=== PATIENT | female | born 1955 | race African-American/Black ===

== ENCOUNTER 2017-03-05 20:42 | Emergency (ER) | payer MEDICARE, OTHER ==
[~2017-03-05 20:42] MED LIST: COLACE PO; K-DUR20 ME1 PO; MACROBID100 MG PO; MEDROL DOSEPAK4 MG PO; TRAMADOL HCL50 M1 PO
== END 2017-03-05 22:35 | disposition home or self-care (01) ==
LOC: CED 20:42
DX: M54.5 Low back pain (principal); E66.01 Morbid (severe) obesity due to excess calories; I10 Essential (primary) hypertension; Z90.49 Acquired absence of other specified parts of digestive tract; Z90.710 Acquired absence of both cervix and uterus
CPT/HCPCS: 99282